=== PATIENT | male | born 1940 | race Asian ===

== ENCOUNTER → 2019-01-13 13:44 | Outpatient (CLI) | payer MEDICARE, OTHER, MEDICAID, SELFPAY ==
--- NOTE | 2019-01-13 | DI.CT.S_ITS ---
PROCEDURE: CT ABDOMEN PELVIS WO/W CON INDICATIONS: Gross hematuria TECHNIQUE: Optional 5 mm thick noncontrast images acquired from the diaphragm to the symphysis pubis. After the administration of intravenous contrast, 5 mm thick images acquired from the diaphragm to the symphysis pubis after a 10-minute delay. 2 mm thick coronal and sagittal reformats were then performed of the kidneys and ureters. For radiation dose reduction, the following was used: automated exposure control, adjustment of mA and/or kV according to patient size. COMPARISON: None. FINDINGS: Image quality: Excellent. Lung bases: Left lung base pulmonary nodule measuring 6 x 5 mm, (3/5). Questionable enhancement. A few pulmonary cysts. Emphysematous change. Heart size is normal. Urinary system: Both kidneys are normal in size, without hydronephrosis or nephrolithiasis on pre-contrast images. No perinephric fat stranding. There is normal bilateral renal enhancement. No solid mass. Simple cyst in the right kidney measuring 2 cm. A few smaller cortical hypodensities which are too small to further characterize. Renal calyces appear normal in morphology when filled with contrast. Upper portions of the ureters are well-opacified. The inferior portions are not well opacified. There is abnormal thickening adjacent to the mid right ureter/right gonadal vein measuring the 1.3 x 1.1 cm, (3/109). Opacified portions of both ureters demonstrate normal caliber. No filling defect identified. Bladder wall thickness is normal. No calcified bladder stones. Other solid organs: Liver is normal in size and enhancement. Gallbladder is unremarkable. Biliary system is non dilated. Pancreas enhances normally. Spleen is normal in size and enhancement. No adrenal nodules. Peritoneum and bowel: Small hiatal hernia. Bowel loops demonstrate normal wall thickness and caliber. The appendix is normal. Moderate diverticulosis. No free fluid or air. Nodes and vessels: No retroperitoneal or mesenteric adenopathy by size criteria. Aorta and inferior vena cava are normal in size. Abdominal wall: No ventral hernias. Pelvis: Prostate is markedly enlarged measuring 8.8 x 8 x 7.8 cm. No pathologic free pelvic fluid. No inguinal hernias or adenopathy. Bones: Osteopenia. No suspicious bony lesions. A small bone island in the right sacral ala. No vertebral body compression fractures. IMPRESSION: 1. Small area of soft tissue thickening adjacent to the mid right ureter/gonadal vein measuring 1.3 cm. Comparison with prior cross-sectional abdominal imaging would be helpful to assess for interval change of this area if available. 2. No kidney stones, solid renal mass, or ureteral filling defect in the opacified upper portions of the ureters. (The distal ureters are not well opacified). 3. Marked prostatomegaly. Dictated by: Bradford Whitlock M.D. on 01/14/2019 at 8:48 Approved by: Bradford Whitlock M.D. on 01/14/2019 at 9:04
== END ==
PROVIDERS: Visit Provider Urology
DX: R31.0 Gross hematuria (principal); R91.1 Solitary pulmonary nodule; N28.1 Cyst of kidney, acquired; N40.0 Benign prostatic hyperplasia without lower urinary tract symptoms; K44.9 Diaphragmatic hernia without obstruction or gangrene; K57.90 Diverticulosis of intestine, part unspecified, without perforation or abscess without bleeding
CPT/HCPCS: 74170; Q9967